=== PATIENT | male | born 1960 | race Caucasian/White ===

== ENCOUNTER → 2019-08-04 13:46 | Outpatient (BNVA) | payer MEDICARE, BC, SELFPAY | PROVIDERS: Family Provider Family Medicine; PCP Family Medicine; Visit Provider Specialist | DX: R29.90 Unspecified symptoms and signs involving the nervous system (principal); G80.1 Spastic diplegic cerebral palsy; N39.0 Urinary tract infection, site not specified; Z97.8 Presence of other specified devices | CPT/HCPCS: 62367; 99214 ==

== ENCOUNTER → 2019-08-13 14:16 | Outpatient (BNVA) | payer MEDICARE, BC, SELFPAY | PROVIDERS: Family Provider Family Medicine; PCP Family Medicine; Visit Provider Specialist | DX: R29.90 Unspecified symptoms and signs involving the nervous system (principal); G80.1 Spastic diplegic cerebral palsy | CPT/HCPCS: 62370; 99213 ==

== ENCOUNTER → 2019-12-07 11:36 | Outpatient (BNVA) | payer MEDICARE, BC, SELFPAY | PROVIDERS: Family Provider Family Medicine; PCP Family Medicine; Visit Provider Specialist | DX: G80.1 Spastic diplegic cerebral palsy (principal); Z97.8 Presence of other specified devices; Z87.891 Personal history of nicotine dependence | CPT/HCPCS: 62370; 99214 ==

== ENCOUNTER → 2020-05-12 14:10 | Outpatient (BNVA) | payer MEDICARE, BC, SELFPAY | PROVIDERS: Family Provider Family Medicine; PCP Family Medicine; Visit Provider Specialist | DX: Z97.8 Presence of other specified devices (principal); G80.1 Spastic diplegic cerebral palsy; Z87.891 Personal history of nicotine dependence | CPT/HCPCS: 62370; 99213 ==

== ENCOUNTER → 2020-10-17 12:27 | Outpatient (BNVA) | payer MEDICARE, BC, SELFPAY | PROVIDERS: Family Provider Family Medicine; PCP Family Medicine; Visit Provider Specialist | DX: G80.1 Spastic diplegic cerebral palsy (principal); Z97.8 Presence of other specified devices; M96.1 Postlaminectomy syndrome, not elsewhere classified; Z87.891 Personal history of nicotine dependence | CPT/HCPCS: 62370; 99213 ==

== ENCOUNTER → 2021-03-23 12:08 | Outpatient (BNVA) | payer MEDICARE, BC, SELFPAY | PROVIDERS: Family Provider Family Medicine; PCP Family Medicine; Visit Provider Specialist | DX: G80.1 Spastic diplegic cerebral palsy (principal); M96.1 Postlaminectomy syndrome, not elsewhere classified; Z96.89 Presence of other specified functional implants | CPT/HCPCS: 62370; 99213 ==

== ENCOUNTER → 2021-08-29 09:50 | Outpatient (BNVA) | payer MEDICARE, BC, SELFPAY | PROVIDERS: Family Provider Family Medicine; PCP Family Medicine; Visit Provider Specialist | DX: G80.1 Spastic diplegic cerebral palsy (principal); M96.1 Postlaminectomy syndrome, not elsewhere classified; Z96.89 Presence of other specified functional implants | CPT/HCPCS: 62370; 99212 ==

== ENCOUNTER → 2022-01-25 10:34 | Outpatient (BNVA) | payer MEDICARE, BC, SELFPAY | PROVIDERS: Family Provider Family Medicine; PCP Family Medicine; Visit Provider Specialist | DX: Z45.1 Encounter for adjustment and management of infusion pump (principal); Z96.89 Presence of other specified functional implants; M96.1 Postlaminectomy syndrome, not elsewhere classified; G80.1 Spastic diplegic cerebral palsy | CPT/HCPCS: 62370; 99213 ==

== ENCOUNTER → 2022-06-20 15:23 | Outpatient (BNVA) | payer MEDICARE, BC, SELFPAY | PROVIDERS: Family Provider Family Medicine; PCP Family Medicine; Visit Provider Specialist | DX: G80.1 Spastic diplegic cerebral palsy (principal); Z97.8 Presence of other specified devices; M96.1 Postlaminectomy syndrome, not elsewhere classified; Z45.1 Encounter for adjustment and management of infusion pump; Z79.891 Long term (current) use of opiate analgesic | CPT/HCPCS: 62370; 99213 ==

== ENCOUNTER → 2022-08-10 10:58 | Outpatient (BNVA) | payer MEDICARE, BC, SELFPAY | PROVIDERS: Family Provider Family Medicine; PCP Family Medicine; Visit Provider Specialist | DX: G80.1 Spastic diplegic cerebral palsy (principal); Z96.89 Presence of other specified functional implants; Z45.1 Encounter for adjustment and management of infusion pump; Z79.891 Long term (current) use of opiate analgesic | CPT/HCPCS: 62370; 99213 ==

== ENCOUNTER → 2022-11-08 10:20 | Outpatient (BNVA) | payer MEDICARE, BC, SELFPAY | PROVIDERS: Family Provider Family Medicine; PCP Family Medicine; Visit Provider Specialist | DX: Z45.1 Encounter for adjustment and management of infusion pump (principal); Z96.89 Presence of other specified functional implants; G80.1 Spastic diplegic cerebral palsy; Z79.891 Long term (current) use of opiate analgesic | CPT/HCPCS: 62370 ==

== ENCOUNTER → 2023-04-11 10:50 | Outpatient (BNVA) | payer MEDICARE, BC, SELFPAY | PROVIDERS: Family Provider Family Medicine; PCP Family Medicine; Visit Provider Specialist | DX: M96.1 Postlaminectomy syndrome, not elsewhere classified (principal); G80.1 Spastic diplegic cerebral palsy; Z97.8 Presence of other specified devices | CPT/HCPCS: 62370 ==

== ENCOUNTER → 2023-09-05 12:02 | Outpatient (BNVA) | payer MEDICARE, BC, SELFPAY | PROVIDERS: Family Provider Family Medicine; PCP Family Medicine; Visit Provider Specialist | DX: Z97.8 Presence of other specified devices (principal); G80.1 Spastic diplegic cerebral palsy; M96.1 Postlaminectomy syndrome, not elsewhere classified | CPT/HCPCS: 62370; 99213 ==

== ENCOUNTER → 2024-07-31 11:41 | Outpatient (BNVA) | payer MEDICARE, BC, SELFPAY | PROVIDERS: Family Provider Family Medicine; PCP Family Medicine; Visit Provider Specialist | DX: G80.1 Spastic diplegic cerebral palsy (principal); Z97.8 Presence of other specified devices | CPT/HCPCS: 62370; 64644; 99213; J0585 ==

== ENCOUNTER → 2024-09-18 15:36 | Outpatient (BNVA) | payer MEDICARE, OTHER, SELFPAY | PROVIDERS: Family Provider Family Medicine; PCP Family Medicine; Visit Provider Specialist | DX: G80.1 Spastic diplegic cerebral palsy (principal) | CPT/HCPCS: 20605; 99213; J1010; J3490 ==

== ENCOUNTER → 2025-01-19 11:47 | Outpatient (BNVA) | payer MEDICARE, OTHER, SELFPAY | PROVIDERS: Family Provider Family Medicine; PCP Family Medicine; Visit Provider Specialist | DX: G80.1 Spastic diplegic cerebral palsy (principal); Z97.8 Presence of other specified devices; M96.1 Postlaminectomy syndrome, not elsewhere classified | CPT/HCPCS: 62370; 64450; 99213 ==

== ENCOUNTER → 2025-06-07 13:36 | Outpatient (BNVA) | payer MEDICARE, OTHER, SELFPAY | PROVIDERS: Family Provider Family Medicine; PCP Family Medicine; Visit Provider Specialist | DX: G80.1 Spastic diplegic cerebral palsy (principal); Z97.8 Presence of other specified devices | CPT/HCPCS: 62370; 99214 ==